=== PATIENT | male | born 1995 | race Caucasian/White ===

== ENCOUNTER 2017-07-25 12:55 | Emergency (ER) | payer OTHER ==
[2017-07-25] MEDS ORDERED: Acetaminophen TAB* 325 MG PO ONE (13:31)
[2017-07-25] MEDS ORDERED: NS 0.9% 1000 ML* 1,000 ML IV ONE ×2 (14:15)
--- NOTE | 2017-07-25 14:37 | ED ---
Influenza-Like Illness - HPI Summary HPI Summary: Patient presents to the ED with fever, sweats, chills, nausea, decreased oral intake, throat pain, cough 3 days. Symptoms are aggravated by nothing and alleviated with nothing. He has tried Tylenol and ibuprofen without relief. Temperature is highest at 103 and not relieved with Tylenol. He continues to remain active and this still drinking well. Denies any urinary symptoms, back pain, diarrhea. He states he has strep throat every year around this time and it feels similar. Endorses white exudates bilaterally in the throat. Endorses dysphasia, odynophagia. Denies any shortness of breath or chest pain. He is otherwise healthy, takes no medications. Family member at bedside. - History of Current Complaint Chief Complaint: EDFluSymptoms Time Seen by Provider: 07/25/17 13:12 Hx Obtained From: Patient Onset/Duration: Gradual Onset Severity: Moderate Associated Signs & Symptoms: Fever, T Max - 103.3, F/C Related Hx: Possible Flu/Infectious Exposure - Risk Factors Influenza Risk Factors: Negative - Allergy/Home Medications Allergies/Adverse Reactions: Allergies Allergy/AdvReac Type Severity Reaction Status Date / Time No Known Allergies Allergy See Comment Verified 07/25/17 13:13 PMH/Surg Hx/FS Hx/Imm Hx Previously Healthy: Yes - Immunization History Hx Pertussis Vaccination: No Immunizations Up to Date: Unable to Obtain/Confirm Infectious Disease History: No Infectious Disease History: Denies: Traveled Outside the [place] in Last 30 Days - Social History Occupation: Unemployed, Student Lives: With Family Alcohol Use: Weekly Hx Substance Use: Yes Substance Use Type: Reports: Marijuana Hx Tobacco Use: Yes Smoking Status (MU): Former Smoker Review of Systems Positive: Fever, Chills, Fatigue Eyes: Negative Cardiovascular: Negative Genitourinary: Negative Positive: no symptoms reported, see HPI Positive: Myalgia Skin: Negative Positive: Headache All Other Systems Reviewed And Are Negative: Yes Physical Exam Triage Information Reviewed: Yes Vital Signs On Initial Exam: Initial Vitals Temp Pulse Resp BP Pulse Ox 102.5 F 109 18 140/76 97 07/25/17 13:08 07/25/17 13:08 07/25/17 13:08 07/25/17 13:08 07/25/17 13:08 Vital Signs Reviewed: Yes Appearance: Positive: Well-Appearing, Well-Nourished Skin: Positive: Warm, Skin Color Reflects Adequate Perfusion Head/Face: Positive: Normal Head/Face Inspection Eyes: Positive: EOMI, ADDISON, Conjunctiva Clear Neck: Positive: Supple, No Lymphadenopathy Respiratory/Lung Sounds: Positive: Clear to Auscultation, Breath Sounds Present Cardiovascular: Positive: Normal, RRR, Pulses are Symmetrical in both Upper and Lower Extremities Musculoskeletal: Positive: Normal, Strength/ROM Intact Neurological: Positive: Speech Normal Psychiatric: Positive: Normal, Affect/Mood Appropriate Diagnostics - Vital Signs Vital Signs Temp Pulse Resp BP Pulse Ox 07/25/17 14:00 105 128/74 95 07/25/17 13:30 108 130/67 96 07/25/17 13:12 111 96 07/25/17 13:11 134/67 07/25/17 13:08 102.5 F 109 18 140/76 97 - Laboratory Lab Results: Lab Results 07/25/17 07/25/17 Range/Units 13:27 13:27 Influenza A (Rapid) Negative (Negative) Influenza B (Rapid) Negative (Negative) Group A Strep Rapid Negative (Negative) Result Diagrams: 07/25/17 14:20 07/25/17 14:20 Lab Statement: Any lab studies that have been ordered have been reviewed, and results considered in the medical decision making process. Flu Symptom Course/Dx - Course Course Of Treatment: During the course of treatment, the patient is evaluated for influenza-like illness. Flu and strep swabs obtained at both negative. He is noted to be 102.9 on arrival and his given Tylenol 650 mg. He is tachycardia at 117 and given 2 L normal saline fluids. He denies any nausea. He is extremely diaphoretic. After fluids, patient endorses feeling much improved. Posterior pharynx erythematous with inflammation and bilateral tonsillitis with tonsillar exudates. Labs obtained and within normal limits. Slightly elevated white count, with no left shift. Due to his extensive history of strep throat, bilateral tonsillar exudates and high fever with negative flu, I am treating for a bacterial infection. He will follow-up with [facility] for any worsening symptoms. He is given amoxicillin 500 mg twice a day 10 days. Encourage Tylenol 650 mg 3 times daily for any fevers. - Diagnoses Differential Diagnosis/HQI/PQRI: Positive: Influenza, Pneumonia, Upper Respiratory Infection Provider Diagnoses: Pharyngitis Discharge - Discharge Plan Condition: Stable Disposition: HOME Prescriptions: Amoxicillin PO (*) [Amoxicillin 500 MG CAP*] 500 mg PO Q12H #20 cap Patient Education Materials: Pharyngitis (ED), Tonsillitis (ED) Referrals: No Primary Care Phys,NOPCP [Primary Care Provider] - Additional Instructions: Tylenol 650 mg 3 times daily for fevers and aches May take ibuprofen 600 mg intermittently Drink plenty of fluids If you feel you're not getting enough fluids, drink Gatorade.
[2017-07-25 14:40] LABS: ABS Basophils 0 10^3/ul (0-0.2); ABS Eosinophils 0 10^3/ul (0-0.6); ABS Lymphocytes 1.5 10^3/ul (1.0-4.8); ABS Monocytes 0.9 10^3/ul (0-0.8); ABS Neutrophils 10.2 10^3/ul (1.5-7.7); ABS Nucleated RBC 0 10^3/ul; Eosinophil % 0 % (0-6); Hematocrit 37 % (42-52); Hemoglobin 12.6 g/dl (14.0-18.0); Lymphocyte % 11.7 % (25-47); Mean Corpuscular HGB Conc 34 g/dl (31-36); Mean Corpuscular Hemoglobin 29 pg (27-31); Mean Corpuscular Volume 85 fL (80-94); Mean Platelet Volume 8 um3 (7.4-10.4); Nucleated Red Blood Cells % 0.1; Platelet Count 163 10^3/ul (150-450); Red Blood Count 4.35 10^6/ul (4.0-5.4); Red Cell Distribution Width 13 % (10.5-15); White Blood Count 12.7 10^3/ul (3.5-10.8)
[2017-07-25 14:50] LABS: EGFR Non-African American 81.1 (>60)
[2017-07-25 15:40] VITALS: BP 119/62
== END 2017-07-25 15:39 | disposition home or self-care (01) ==
LOC: ED 12:55
DX: J02.9 Acute pharyngitis, unspecified (principal); R50.9 Fever, unspecified; Z87.891 Personal history of nicotine dependence; R53.83 Other fatigue; R51 Headache
CPT/HCPCS: 36415; 80053; 83605; 85025; 87502; 87651; 99283; A9270-GY